=== PATIENT | male | born 1985 | race African-American/Black ===

== ENCOUNTER 2017-04-24 19:27 | Emergency (ER) | payer OTHER ==
[~2017-04-24] VITALS: Ht 185.4 cm; Wt 80.3 kg
[~2017-04-24 19:27] MED LIST: ACETAMINOPHEN-1 EAC1 PO; FLEXERIL PO; HYDROCODONE-AP1 EAC6 PO; IBUPROFEN 800800 M1 PO; IBUPROFEN 800800 MG PO; MOBIC15 MG PO; MOBIC7.5 MG PO; NOHOMEMEDICATIONS; NORCO 5-325 TA1 EACH PO; ZOFRAN ODT4 MG PO
[2017-04-24 20:03] LABS: ABSOLUTE BASOPHILS 0.1 thou/uL (0.0-0.2); ABSOLUTE EOSINOPHILS 0.3 thou/uL (0.0-0.7); ABSOLUTE LYMPHOCYTES 2.5 thou/uL (0.8-5.3); ABSOLUTE MONOCYTES 0.4 thou/uL (0.0-1.2); ABSOLUTE NEUTROPHILS 2.6 thou/uL (1.6-8.1); BASOPHILS 0.9 %; EOSINOPHILS 5.1 %; HEMATOCRIT 39.1 % (42.0-52.0); HEMOGLOBIN 13.2 gm/dL (14.0-18.0); LYMPHOCYTES 43.2 %; MCHC 33.8 g/dL (28.0-37.0); MCV 85.9 fL (80.0-100.0); MONOCYTES 6.3 %; MPV 7.8 fl. (7.2-11.1); NUCLEATED RBCS 0 /100WBC; PLATELET COUNT* 300 thou/uL (150-400); POLYS 44.5 %; RBC 4.56 mil/uL (4.50-6.00); RDW-CV 14.4 % (10.5-14.5); WBC 5.9 thou/uL (4.0-11.0)
[2017-04-24 20:11] LABS: CALCIUM 9.1 mg/dL (8.5-10.1); CREATININE 1.1 mg/dL (0.6-1.3); POTASSIUM 3.4 mmol/L (3.5-5.1)
[2017-04-24 20:15] LABS: ALBUMIN 3.8 g/dL (3.4-5.0); TOTAL BILIRUBIN 0.4 mg/dL (<0.1-1.0); TOTAL PROTEIN 7.5 g/dL (6.4-8.2)
[2017-04-24 20:59] LABS: URINE BLOOD NEGATIVE (Negative); URINE CLARITY CLEAR; URINE COLOR YELLOW; URINE GLUCOSE-RANDOM NEGATIVE (Negative); URINE KETONES TRACE (Negative); URINE LEUKOCYTES-REFLEX NEGATIVE (Negative); URINE NITRITE-REFLEX NEGATIVE (Negative); URINE PROTEIN TRACE (Negative); URINE SPECIFIC GRAVITY >= 1.030 (1.005-1.030); URINE UROBILINOGEN 0.2 E.U./dl (0.2-1.0)
[2017-04-24 21:00] LABS: URINE BILIRUBIN 1+ (Negative)
[2017-04-24 21:02] LABS: ICTOTEST (BILI CONFIRMATORY) Negative (Negative)
[2017-04-24] MEDS ORDERED: MIRALAX17 GM PO (21:10)
[2017-04-24 21:29] VITALS: BP 124/64
== END 2017-04-24 21:30 | disposition home or self-care (01) ==
LOC: M.ERS 19:27
PROVIDERS: Nurse Practitioner Psychiatric/Mental Health
DX: K59.00 Constipation, unspecified (principal); E86.0 Dehydration; I10 Essential (primary) hypertension; F31.9 Bipolar disorder, unspecified; F41.9 Anxiety disorder, unspecified; F17.210 Nicotine dependence, cigarettes, uncomplicated

== ENCOUNTER 2017-06-26 11:32 | Emergency (ER) | payer OTHER ==
[~2017-06-26] VITALS: Ht 182.9 cm; Wt 90.7 kg
[~2017-06-26 11:32] MED LIST changes: +MIRALAX17 GM PO
[2017-06-26 12:37] LABS: URINE BILIRUBIN NEGATIVE (Negative); URINE BLOOD NEGATIVE (Negative); URINE CLARITY CLEAR; URINE COLOR YELLOW; URINE GLUCOSE-RANDOM NEGATIVE (Negative); URINE KETONES NEGATIVE (Negative); URINE LEUKOCYTES-REFLEX NEGATIVE (Negative); URINE NITRITE-REFLEX NEGATIVE (Negative); URINE PROTEIN NEGATIVE (Negative); URINE UROBILINOGEN 0.2 E.U./dl (0.2-1.0)
[2017-06-26 12:39] LABS: ABSOLUTE BASOPHILS 0.1 thou/uL (0.0-0.2); ABSOLUTE LYMPHOCYTES 1.4 thou/uL (0.8-5.3); ABSOLUTE MONOCYTES 0.6 thou/uL (0.0-1.2); ABSOLUTE NEUTROPHILS 10.6 thou/uL (1.6-8.1); BASOPHILS 0.5 %; EOSINOPHILS 0.3 %; HEMATOCRIT 41.8 % (42.0-52.0); HEMOGLOBIN 13.7 gm/dL (14.0-18.0); MCH 28.3 pg (26.0-34.0); MCHC 32.8 g/dL (28.0-37.0); MCV 86.2 fL (80.0-100.0); MPV 8.7 fl. (7.2-11.1); NUCLEATED RBCS 0 /100WBC; PLATELET COUNT* 308 thou/uL (150-400); POLYS 83.2 %; RBC 4.84 mil/uL (4.50-6.00); RDW-CV 13.8 % (10.5-14.5); WBC 12.7 thou/uL (4.0-11.0)
[2017-06-26 12:44] LABS: AMP/METHAMP Negative (Negative); BARBITURATES Negative (Negative); BENZODIAZEPINES Negative (Negative); COCAINE Negative (Negative); METHADONE Negative (Negative); OPIATES Negative (Negative); PCP Negative (Negative); THC POSITIVE (Negative)
[2017-06-26 12:47] LABS: ANION GAP 8 mmol/L (7-16); BUN 9 mg/dL (7-18); CALCIUM 9.6 mg/dL (8.5-10.1); CHLORIDE 103 mmol/L (98-107); CO2 32 mmol/L (21-32); GLUCOSE 161 mg/dL (70-99); POTASSIUM 3.1 mmol/L (3.5-5.1); SODIUM 143 mmol/L (136-145)
[2017-06-26 12:54] LABS: ALBUMIN 4.2 g/dL (3.4-5.0); ALKALINE PHOSPHATASE 81 U/L (46-116); LIPASE 68 U/L (73-393); SGOT 27 U/L (15-37); SGPT 31 U/L (30-65); TOTAL BILIRUBIN 0.4 mg/dL (<0.1-1.0); TOTAL PROTEIN 7.9 g/dL (6.4-8.2); TROPONIN-I LEVEL <0.06 ng/mL (<0.06)
[2017-06-26] MEDS ORDERED: PHENERGAN 25 MG25 M1 PO (13:57)
[2017-06-26] MEDS ORDERED: PHENERGAN12.5 M2 RECTAL (13:57)
[2017-06-26 14:11] VITALS: BP 161/91
--- NOTE | 2017-06-26 17:20 | EKG ---
[place] [address] ELECTROCARDIOGRAM REPORT Name: ELLYJES Room: [facility]#: [id number] Admission: 06/26/17 Attend Phys: Discharge: 06/26/17 Date of : 81 Report #: [id number] THIS REPORT FOR: //name// [facility] ED Test Date: 2017-06-26 Test Time: 13:04:42 Pat Name: JES SANABRIA Department: Room: Gender: M Composition Professor: Reny GIRALDO : 1985 Requested By: Analilia Conteh Order Number: [id number] MD: Delgado Peacock Measurements Intervals [place] Rate: 48 P: 70 IN: 149 QRS: 82 QRSD: 106 T: 7 QT: 496 QTc: 444 Interpretive Statements Sinus bradycardia nonspecific st changes Probable left atrial enlargement Compared to ECG 07/12/2015 08:48:26 Sinus rhythm no longer present Electronically Signed On 06-26-2017 17:20:21 CDT by Delgado Peacock [email or web address] <ELECTRONICALLY SIGNED> By: Delgado Peacock MD, [facility] 06/26/17 1720 1304 1304 Delgado Peacock MD, [facility] /EPI
== END 2017-06-26 14:11 | disposition home or self-care (01) ==
LOC: M.ERS 11:32
PROVIDERS: Personal Emergency Response Attendant
DX: G43.A0 Cyclical vomiting, in migraine, not intractable (principal); I10 Essential (primary) hypertension; F32.9 Major depressive disorder, single episode, unspecified; F41.9 Anxiety disorder, unspecified; F17.210 Nicotine dependence, cigarettes, uncomplicated

== ENCOUNTER 2017-07-20 09:59 | Emergency (ER) | payer OTHER ==
[~2017-07-20] VITALS: Ht 182.9 cm; Wt 83.9 kg
[~2017-07-20 09:59] MED LIST changes: +PHENERGAN 25 MG25 M1 PO; +PHENERGAN12.5 M2 RECTAL
[2017-07-20] MEDS ORDERED: NAPROSYN500 MG PO (10:13)
[2017-07-20] MEDS ORDERED: ROBAXIN 750 MG750 M1 PO (10:13)
[2017-07-20 10:23] VITALS: BP 137/92
== END 2017-07-20 10:23 | disposition home or self-care (01) ==
LOC: M.ERS 09:59
DX: M62.830 Muscle spasm of back (principal); I10 Essential (primary) hypertension; F32.9 Major depressive disorder, single episode, unspecified; F41.9 Anxiety disorder, unspecified; F17.210 Nicotine dependence, cigarettes, uncomplicated

== ENCOUNTER 2017-09-10 16:56 | Emergency (ER) | payer OTHER ==
[~2017-09-10] VITALS: Ht 182.9 cm; Wt 83.9 kg
[~2017-09-10 16:56] MED LIST changes: +NAPROSYN500 MG PO; +ROBAXIN 750 MG750 M1 PO
[2017-09-10] MEDS ORDERED: NORCO 5-325 TA1 EACH PO (17:43)
[2017-09-10 18:08] VITALS: BP 114/79
== END 2017-09-10 18:09 | disposition home or self-care (01) ==
LOC: M.ERS 16:56
DX: S52.592A Other fractures of lower end of left radius, initial encounter for closed fracture (principal); I10 Essential (primary) hypertension; F41.9 Anxiety disorder, unspecified; F31.9 Bipolar disorder, unspecified; F17.210 Nicotine dependence, cigarettes, uncomplicated; W22.8XXA Striking against or struck by other objects, initial encounter; Y93.64 Activity, baseball; Y92.89 Other specified places as the place of occurrence of the external cause; Y99.8 Other external cause status

== ENCOUNTER 2017-11-15 19:15 | Emergency (ER) | payer OTHER ==
[~2017-11-15] VITALS: Ht 182.9 cm; Wt 81.7 kg
[2017-11-15] MEDS ORDERED: NORCO 5-325 TA1 EACH PO (21:11)
[2017-11-15 21:28] VITALS: BP 130/88
== END 2017-11-15 21:29 | disposition home or self-care (01) ==
LOC: M.ERS 19:15
DX: M25.532 Pain in left wrist (principal); I10 Essential (primary) hypertension; F41.9 Anxiety disorder, unspecified; F31.9 Bipolar disorder, unspecified; F17.210 Nicotine dependence, cigarettes, uncomplicated

== ENCOUNTER 2018-01-25 11:36 | Emergency (ER) | payer OTHER ==
[~2018-01-25] VITALS: Ht 182.9 cm; Wt 82.1 kg
[2018-01-25 12:22] LABS: ABSOLUTE BASOPHILS 0.1 thou/uL (0.0-0.2); ABSOLUTE EOSINOPHILS 0.2 thou/uL (0.0-0.7); ABSOLUTE MONOCYTES 0.5 thou/uL (0.0-1.2); ABSOLUTE NEUTROPHILS 2.8 thou/uL (1.6-8.1); EOSINOPHILS 3.5 %; HEMATOCRIT 38.6 % (42.0-52.0); HEMOGLOBIN 13.2 gm/dL (14.0-18.0); LYMPHOCYTES 35.8 %; MCH 29.3 pg (26.0-34.0); MCHC 34.3 g/dL (28.0-37.0); MCV 85.3 fL (80.0-100.0); MONOCYTES 9.4 %; MPV 8.4 fl. (7.2-11.1); NUCLEATED RBCS 0 /100WBC; PLATELET COUNT* 302 thou/uL (150-400); POLYS 50.3 %; RBC 4.52 mil/uL (4.50-6.00); RDW-CV 13.6 % (10.5-14.5); WBC 5.5 thou/uL (4.0-11.0)
[2018-01-25 12:26] LABS: CALCIUM 8.8 mg/dL (8.5-10.1); POTASSIUM 3.4 mmol/L (3.5-5.1)
[2018-01-25 12:30] LABS: ALBUMIN 3.8 g/dL (3.4-5.0); TOTAL BILIRUBIN 0.4 mg/dL (<0.1-1.0); TOTAL PROTEIN 7.6 g/dL (6.4-8.2)
[2018-01-25 13:07] LABS: URINE BILIRUBIN NEGATIVE (Negative); URINE BLOOD NEGATIVE (Negative); URINE CLARITY CLEAR; URINE COLOR YELLOW; URINE GLUCOSE-RANDOM NEGATIVE (Negative); URINE KETONES NEGATIVE (Negative); URINE LEUKOCYTES-REFLEX NEGATIVE (Negative); URINE NITRITE-REFLEX NEGATIVE (Negative); URINE PROTEIN NEGATIVE (Negative); URINE SPECIFIC GRAVITY 1.025 (1.005-1.030); URINE UROBILINOGEN 0.2 E.U./dl (0.2-1.0)
[2018-01-25] MEDS ORDERED: BENTYL 20 MG TA20 M1 PO (13:25)
[2018-01-25] MEDS ORDERED: ZOFRAN4 MG PO (13:25)
[2018-01-25 13:47] VITALS: BP 127/80
== END 2018-01-25 13:48 | disposition home or self-care (01) ==
LOC: M.ERS 11:36
PROVIDERS: Nurse Practitioner Family
DX: K52.9 Noninfective gastroenteritis and colitis, unspecified (principal); I10 Essential (primary) hypertension; F31.9 Bipolar disorder, unspecified; F41.9 Anxiety disorder, unspecified; F17.210 Nicotine dependence, cigarettes, uncomplicated

== ENCOUNTER 2018-07-08 15:00 | Emergency (ER) | payer OTHER ==
[~2018-07-08] VITALS: Ht 182.9 cm; Wt 81.7 kg
[~2018-07-08 15:00] MED LIST changes: +BENTYL 20 MG TA20 M1 PO; +ZOFRAN4 MG PO
[2018-07-08] MEDS ORDERED: IBUPROFEN 600600 M1 PO (16:05)
[2018-07-08] MEDS ORDERED: NORCO 5-325 TA1 EACH PO (16:05)
[2018-07-08 16:15] VITALS: BP 121/70
== END 2018-07-08 16:16 | disposition home or self-care (01) ==
LOC: M.ERS 15:00
DX: M79.642 Pain in left hand (principal); F17.210 Nicotine dependence, cigarettes, uncomplicated; I10 Essential (primary) hypertension; F41.9 Anxiety disorder, unspecified; F31.9 Bipolar disorder, unspecified

== ENCOUNTER 2018-11-08 14:17 | Emergency (ER) | payer OTHER ==
[~2018-11-08] VITALS: Ht 185.4 cm; Wt 81.7 kg
[~2018-11-08 14:17] MED LIST changes: +IBUPROFEN 600600 M1 PO
[2018-11-08] MEDS ORDERED: NORCO 5-325 TA1 EAC1 PO (15:47)
[2018-11-08 16:00] VITALS: BP 139/90
== END 2018-11-08 16:02 | disposition home or self-care (01) ==
LOC: M.ERS 14:17
DX: S49.81XA Other specified injuries of right shoulder and upper arm, initial encounter (principal); I10 Essential (primary) hypertension; F41.9 Anxiety disorder, unspecified; F31.9 Bipolar disorder, unspecified; F17.210 Nicotine dependence, cigarettes, uncomplicated; X50.9XXA Other and unspecified overexertion or strenuous movements or postures, initial encounter; Y93.68 Activity, volleyball (beach) (court); Y92.89 Other specified places as the place of occurrence of the external cause; Y99.8 Other external cause status

== ENCOUNTER 2019-08-20 15:32 | Emergency (ER) | payer OTHER ==
[~2019-08-20] VITALS: Ht 182.9 cm; Wt 81.7 kg
[~2019-08-20 15:32] MED LIST changes: +NORCO 5-325 TA1 EAC1 PO
[2019-08-20 17:31] VITALS: BP 151/83
== END 2019-08-20 17:31 | disposition home or self-care (01) ==
LOC: M.ERS 15:32
DX: J06.9 Acute upper respiratory infection, unspecified (principal); F17.210 Nicotine dependence, cigarettes, uncomplicated; I10 Essential (primary) hypertension